=== PATIENT | male | born 1990 | race African-American/Black ===

== ENCOUNTER 2020-04-18 04:18 | Emergency (ER) | payer SELFPAY ==
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
[2020-04-18] MEDS ORDERED: EPINEPHrine 1 MG/10 ML Abboject SYRINGE ONE (09:27)
== END 2020-04-18 04:37 | disposition expired ==
LOC: ERS 04:18 → EDBD 04:18 → ERS 04:37
DX: I46.9 Cardiac arrest, cause unspecified (principal); S21.132A Puncture wound without foreign body of left front wall of thorax without penetration into thoracic cavity, initial encounter; W34.00XA Accidental discharge from unspecified firearms or gun, initial encounter
CPT/HCPCS: 32551; 36556; 71045; 92950; 96374; J0171